=== PATIENT | female | born 1965 | race Caucasian/White ===

== ENCOUNTER 2020-03-26 13:59 | Outpatient (CLI) | payer OTHER ==
--- NOTE | 2020-03-26 14:46 | CT ---
Exam: Head CT without contrast HISTORY: Amnesia. COMPARISON: none FINDINGS: Hemorrhage: No intraparenchymal hemorrhage or extra-axial hematoma. Brain parenchyma: Cortical sandoval-white matter differentiation is preserved. No mass effect or midline shift. Basilar cisterns are patent. Ventricular system: Ventricles and sulci are patent and symmetric. Calvarium: Intact. Sinuses and mastoid air cells: Adequate aeration. IMPRESSION: No acute intracranial process.
== END 2020-03-26 14:00 | disposition home or self-care (01) ==
LOC: BICCT 13:59
PROVIDERS: ATTEND Registered Nurse
DX: R41.3 Other amnesia (principal); Z80.8 Family history of malignant neoplasm of other organs or systems
CPT/HCPCS: 70450